=== PATIENT | female | born 1945 | race Caucasian/White ===

== ENCOUNTER 2022-03-01 14:58 | Inpatient (IN) | payer MEDICARE, OTHER ==
[~2022-03-01] VITALS: Ht 167.6 cm; Wt 77.6 kg
--- NOTE | 2022-03-01 15:36 | NUR ---
PT BIB FACILITY STAFF C/O GENERALIZED WEAKNESS, WORST TO BLE CAUSING HER TO FALL FREQUENTLY. PT PT IS AAOX3, VSS. NAD NOTED AWAITING MD LEMONS.
[2022-03-01] MEDS ORDERED: BACL10TA PO (16:08)
[2022-03-01] MEDS ORDERED: BUPR-319 PO (16:08)
[2022-03-01] MEDS ORDERED: CHOL200013 PO (16:08)
[2022-03-01] MEDS ORDERED: ONDA4TAB11 PO (16:08)
[2022-03-01] MEDS ORDERED: FOLI0.8T3 PO (16:08)
[2022-03-01] MEDS ORDERED: MULT-439 PO (16:08)
[2022-03-01] MEDS ORDERED: GABA-536 PO (16:08)
[2022-03-01] MEDS ORDERED: MAGN400O6 PO (16:08)
[2022-03-01] MEDS ORDERED: LOPE2CAP PO (16:08)
[2022-03-01] MEDS ORDERED: TOLT4CAP PO (16:08)
[2022-03-01] MEDS ORDERED: MIRT-121 PO (16:08)
--- NOTE | 2022-03-01 16:30 | NUR ---
DR GARVIN AT BEDSIDE FOR EVAL.
--- NOTE | 2022-03-01 16:50 | NUR ---
SUPERINTENDENT SYSTEM OPERATION AT BEDSIDE FOR BLOOD DRAW
[2022-03-01 17:39] LABS: CALCIUM, SERUM 9.1 mg/dL (8.5-10.1); CREATININE 1.2 mg/dL (0.6-1.3)
[2022-03-01 17:43] LABS: BASOPHILS % (AUTO) 0.6 % (0.0-2.0); HEMATOCRIT 43 % (33-45); LYMPHOCYTES % (AUTO) 33.7 % (20.0-44.0); MEAN CORPUSCULAR HGB CONC 33 g/dl (31.0-36.0); MEAN CORPUSCULAR VOLUME 94 fL (82-100); MONOCYTES # (AUTO) 0.7 K/uL (0.1-1.30); MONOCYTES % (AUTO) 10.9 % (2.0-12.0); NEUTROPHILS # (AUTO) 3.1 K/uL (1.8-8.9); NEUTROPHILS % (AUTO) 51.8 % (43.0-81.0); PLATELET COUNT (AUTO) 377 K/uL (150-450); RED BLOOD CELL COUNT(AUTO) 4.51 MIL/uL (4.0-5.2)
[2022-03-01 17:45] LABS: ALBUMIN 3.3 g/dL (3.4-5.0); BILIRUBIN,DIRECT 0.1 mg/dL (0.0-0.2); BILIRUBIN,TOTAL 0.3 mg/dL (0.2-1.0); TOTAL PROTEIN, SERUM 7.5 g/dL (6.4-8.2)
--- NOTE | 2022-03-01 18:26 | NUR ---
COVID SWAB DONE AND SENT TO LAB
[2022-03-01] MEDS ORDERED: MAGNESIUM HYDROXIDE 30 ML UDC PO PRN (20:30)
[2022-03-01] MEDS ORDERED: ONDANSETRON HCL/PF 4 MG/2 ML VIAL IVP PRN (20:30)
[2022-03-01] MEDS ORDERED: Z GUARD REMEDY 4 OZ OINT TP PRN (20:30)
--- NOTE | 2022-03-01 22:02 | NUR ---
REPORT GIVEN TO MONICA BRIGHT
--- NOTE | 2022-03-01 22:44 | NUR ---
PATIENT TRANSFERRED, NO ACUTE DISTRESS NOTED.
--- NOTE | 2022-03-01 22:45 | NUR ---
ADMISSION NOTES PT ARRIVED VIA [facility] @[id number] ACCOMPANIED BY RN AND EMT. AOx4, ABLE TO MAKE NEEDS KNOWN. ON RA AND TOLERATING WELL. NO SOB NOTED. NO S/S OF RESPIRATORY DISTRESS NOTED. IV ACCESS IN LAC #20G. IV IS INTACT, PATENT, AND FLUSHING WELL. SKIN IS INTACT. SAFETY PRECAUTIONS IN PLACE: BED IN LOWEST, LOCKED POSITION, SIDERAILS UPx2, AND BRAKES ON. TABLE AND CALL LIGHT WITHIN REACH. ALL NEED MET AT THIS TIME.
[2022-03-02] MEDS: ACETAMINOPHEN 325 MG TABLET PO PRN ×2 (00:20→21:26)
--- NOTE | 2022-03-02 00:20 | NUR ---
RN NOTES ADMINISTERED TYLENOL FOR PAIN PER MD ORDER.
[2022-03-02] MEDS ORDERED: GUAIFENESIN/D-METHORPHAN HB 5 ML UDC PO PRN (00:30)
[2022-03-02] MEDS: BENZONATATE 100 MG CAPSULE PO SCH ×4 (00:38→17:20)
[2022-03-02 06:26] LABS: BILIRUBIN,URINE NEGATIVE (NEGATIVE); COLOR,URINE YELLOW (YELLOW); LEUKOCYTE ESTERASE ,URINE LARGE (NEGATIVE); NITRITE, URINE NEGATIVE (NEGATIVE); PROTEIN,URINE 100 mg/dl (NEGATIVE); UGLUCOSE NEGATIVE (NEGATIVE); UROBILINOGEN,URINE 0.2 EU/dL (0.2)
[2022-03-02 06:29] LABS: BASOPHILS % (AUTO) 0.6 % (0.0-2.0); EOSINOPHILS % (AUTO) 4.1 % (0.0-6.0); HEMATOCRIT 38 % (33-45); HEMOGLOBIN 12.5 g/dL (11.5-14.8); LYMPHOCYTES # (AUTO) 1.8 K/uL (0.8-4.8); MEAN CORPUSCULAR HGB CONC 33 g/dl (31.0-36.0); MEAN CORPUSCULAR VOLUME 94 fL (82-100); MONOCYTES # (AUTO) 0.8 K/uL (0.1-1.30); MONOCYTES % (AUTO) 13.1 % (2.0-12.0); NEUTROPHILS % (AUTO) 51.2 % (43.0-81.0); PLATELET COUNT (AUTO) 341 K/uL (150-450); RED BLOOD CELL COUNT(AUTO) 4.04 MIL/uL (4.0-5.2); WHITE BLOOD COUNT (AUTO) 5.8 K/uL (4.3-11.0)
[2022-03-02 06:35] LABS: BACTERIA,URINE Few /HPF (None Seen); RBC,URINE 0-2 /HPF (0-2); SQUAMOUS EPITHELIAL CELL,UR Few /HPF (None Seen)
[2022-03-02 06:49] LABS: CALCIUM, SERUM 8.4 mg/dL (8.5-10.1); CREATININE 1.1 mg/dL (0.6-1.3); MAGNESIUM 2.2 mg/dL (1.8-2.4)
[2022-03-02 06:55] LABS: THYROID STIMULATING HORMONE 0.784 uIU/mL (0.358-3.74)
--- NOTE | 2022-03-02 07:10 | NUR ---
MS RN OPENING NOTES: RN OPENING NOTE RECEIVED PATIENT IN BED, ASLEEP. PATIENT IS ABLE TO MAKE NEEDS KNOWN. A/O X 4 AT THIS TIMES. NOT IN ANY DISTRESS ON ROOM AIR. PATIENT HAS A LAC 20 G PATENT AND INTACT, FLUSHING WELL. PATIENT DOES NOT REPORT ANY PAIN AT THIS TIME. SAFETY MEASURES IN PLACE: BED LOCKED AND IN LOWEST POSITION, CALL LIGHT WITHIN REACH, SIDE RAILS UP. WILL MONITOR PATIENT CLOSELY.
[2022-03-02] MEDS: PANTOPRAZOLE 40 MG TABLET.DR PO SCH (07:48)
--- NOTE | 2022-03-02 07:48 | NUR ---
RN CLOSING NOTES PT IN BED, ASLEEP, AWAKENS TO VERBAL STIMULI. NO DISTRESS NOTED. REPORT GIVEN TO DAYSHIFT RN.
[2022-03-02 08:00] VITALS: BP_SYST 119; BP_SYST 128; BP_DIAS 72; BP_DIAS 74
[2022-03-02] MEDS: CHOLECALCIFEROL 1,000 UNIT TABLET (VIT D3) PO SCH (09:11)
[2022-03-02] MEDS: ENOXAPARIN SODIUM 40 MG/0.4 ML DISP.SYRIN SQ SCH (09:11)
[2022-03-02] MEDS: MULTIVIT W/MINERALS 1 TAB TABLET PO SCH (09:12)
[2022-03-02] MEDS: BUPROPION XL 150 MG TAB.ER.24 PO SCH (09:12)
[2022-03-02] MEDS: GABAPENTIN 300 MG CAPSULE PO SCH ×3 (09:12→17:20)
[2022-03-02] MEDS: FOLIC ACID 1 MG TABLET PO SCH (09:12)
[2022-03-02] MEDS: TOLTERODINE 2 MG CAP.SR PO SCH (09:19)
[2022-03-02] MEDS: CEFTRIAXONE 1 G in IV D5W 50 ML IV SCH (11:39)
--- NOTE | 2022-03-02 12:18 | NUR ---
RN NOTES: SEEN AND EVALUATED BY PT
[2022-03-02 16:00] VITALS: BP_SYST 119; BP_SYST 128; BP_DIAS 72; BP_DIAS 74
--- NOTE | 2022-03-02 19:12 | NUR ---
MS RN CLOSING NOTES: PT IN BED AWAKE, ALERT AND ORIENTED X 4 , NOT IN ANY DISTRESS, ON ROOM AIR NO SOB, DENIED ANY PAIN OR DISCOMFORT, JH LOCK OG LEFT AC PATENT AND FLUSHED WELL, BED KEPT IN LOW AND LOCKED POSITION, ENDORSED TO WAREHOUSE MAN RN TO CONTINUE TO MONITOR FOR ANY NANCY
--- NOTE | 2022-03-02 19:21 | NUR ---
MS RN OPENING NOTE RECEIVED PATIENT IN BED, A/OX4. NO S/S OF APPARENT DISTRESS ON ROOM AIR. DENIES PAIN NOR DISCOMFORT AT THIS TIME, WHEELCHAIR NOTED ON BEDSIDE. Dorothy. YAO #20G ON SALINE LOCK. ORIENTED AND ENCOURAGED WITH THE USE OF CALL LIGHT. SAFETY IN PLACE. WILL CONTINUE WITH PATIENT'S PLAN OF CARE.
[2022-03-02 20:00] VITALS: BP 112/67
[2022-03-02] MEDS: MIRTAZAPINE 15 MG TABLET PO SCH (21:25)
[2022-03-02] MEDS: BACLOFEN (10 MG) 10 MG TABLET PO SCH (21:25)
[2022-03-03 06:16] LABS: BASOPHILS % (AUTO) 0.8 % (0.0-2.0); EOSINOPHILS % (AUTO) 4.6 % (0.0-6.0); HEMATOCRIT 38 % (33-45); HEMOGLOBIN 12.8 g/dL (11.5-14.8); LYMPHOCYTES % (AUTO) 41.4 % (20.0-44.0); MEAN CORPUSCULAR HGB CONC 34 g/dl (31.0-36.0); MEAN CORPUSCULAR VOLUME 93 fL (82-100); MONOCYTES # (AUTO) 0.7 K/uL (0.1-1.30); MONOCYTES % (AUTO) 15.1 % (2.0-12.0); NEUTROPHILS # (AUTO) 1.8 K/uL (1.8-8.9); NEUTROPHILS % (AUTO) 38.1 % (43.0-81.0); PLATELET COUNT (AUTO) 341 K/uL (150-450); RED BLOOD CELL COUNT(AUTO) 4.04 MIL/uL (4.0-5.2); WHITE BLOOD COUNT (AUTO) 4.7 K/uL (4.3-11.0)
--- NOTE | 2022-03-03 06:43 | NUR ---
closing note rn noc patient in bed, a/ox4. all needs attended. no s/s of distress in room air. denies any pain nor discomfort. safety kept in place the whole shift. will endorse to morning shift rn for continuiity of patient care.
[2022-03-03 06:48] LABS: ALBUMIN 2.7 g/dL (3.4-5.0); BILIRUBIN,TOTAL 0.3 mg/dL (0.2-1.0); CALCIUM, SERUM 8.4 mg/dL (8.5-10.1); CREATININE 1.2 mg/dL (0.6-1.3); MAGNESIUM 2.3 mg/dL (1.8-2.4); PHOSPHORUS 4.5 mg/dL (2.5-4.9); TOTAL PROTEIN, SERUM 6.3 g/dL (6.4-8.2)
[2022-03-03 08:00] VITALS: BP 115/70
[2022-03-03] MEDS: ENOXAPARIN SODIUM 40 MG/0.4 ML DISP.SYRIN SQ SCH (08:17)
[2022-03-03] MEDS: PANTOPRAZOLE 40 MG TABLET.DR PO SCH (08:19)
[2022-03-03] MEDS: MULTIVIT W/MINERALS 1 TAB TABLET PO SCH (08:19)
[2022-03-03] MEDS: TOLTERODINE 2 MG CAP.SR PO SCH (08:19)
[2022-03-03] MEDS: FOLIC ACID 1 MG TABLET PO SCH (08:19)
[2022-03-03] MEDS: BENZONATATE 100 MG CAPSULE PO SCH ×3 (08:19→17:12)
[2022-03-03] MEDS: GABAPENTIN 300 MG CAPSULE PO SCH ×3 (08:19→17:12)
[2022-03-03] MEDS: BUPROPION XL 150 MG TAB.ER.24 PO SCH (08:19)
[2022-03-03] MEDS: CHOLECALCIFEROL 1,000 UNIT TABLET (VIT D3) PO SCH (08:20)
[2022-03-03] MEDS: CEFTRIAXONE 1 G in IV D5W 50 ML IV SCH (09:09)
[2022-03-03 12:22] LABS: BAND % (MANUAL) 1 % (0.0-5.0); EOSINOPHILS % (MANUAL) 6 % (0-4); LYMPHOCYTES % (MANUAL) 39 % (16-48); MONOCYTES % (MANUAL) 12 % (0-11.0); NEUTROPHILS % (MANUAL) 42 (42-76)
[2022-03-03 15:52] VITALS: BP 123/69
--- NOTE | 2022-03-03 19:41 | NUR ---
RN OPENING NOTE PATIENT RECEIVED AWAKE AND IN BED A/O X4 ND ABLE TO VERBALIZE ALL NEEDS. NO C/O PAIN, NO S/SX OF DISTRESS. PATIENT TOLERATED ALL MEDICATIONS AND MEALS. IV ACCESS SITE PATENT, INTACT AND FLUSHING WELL. TOLERATED IV ABX WITH S/SX OF ADVERSE REACTIONS. SAFETY MEASURES INTACT WITH BED LOW AND LOCKED. CALL LIGHT WITHIN REACH. WILL CONT TO MONITOR.
--- NOTE | 2022-03-03 19:44 | NUR ---
RN OPENING NOTE PATIENT AWAKE IN BED. A/OX4. NO S/S OF DISTRESS, BREATHING WITHOUT DIFFICULTY ROOM AIR. LAC #20 SL INTACT AND PATENT. SAFETY MEASURES IN PLACE: BED AT LOWEST POSITION & LOCKED, RAILS UP X2, CALL FAY WITHIN REACH. WILL CONTINUE TO MONITOR PATIENT.
[2022-03-03 20:00] VITALS: BP 97/56
[2022-03-03] MEDS: ACETAMINOPHEN 325 MG TABLET PO PRN (21:21)
[2022-03-03] MEDS: MIRTAZAPINE 15 MG TABLET PO SCH (21:21)
[2022-03-03] MEDS: BACLOFEN (10 MG) 10 MG TABLET PO SCH (21:21)
--- NOTE | 2022-03-04 06:30 | NUR ---
RN CLOSING NOTE PATIENT ASLEEP IN BED. A/OX4. NO S/S OF DISTRESS, BREATHING WITHOUT DIFFICULTY ON ROOM AIR. LAC #20 SL INTACT AND PATENT. SAFETY MEASURES IN PLACE: BED LOCKED & AT LOWEST POSITION, RAILS UP X2, CALL FAY WITHIN REACH. WILL ENDORSE TO NEXT SHIFT FOR NANCY.
--- NOTE | 2022-03-04 07:30 | NUR ---
RN OPENING NOTE PATIENT RECEIVED IN BED AND SLEEPING. REMAINS A/OX4. NO S/SX OF DISTRESS OBSERVED; NO C/O PAIN UPON ASSESSMENT. IV ACCESS TO LAC INTACT AND PATENT. SAFETY MEASURES INTACT WITH BED LOW AND LOCKED. CALL LIGHT WITHIN REACH. WILL CONTINUE TO MONITOR.
[2022-03-04 08:00] VITALS: BP 105/67
[2022-03-04] MEDS: ENOXAPARIN SODIUM 40 MG/0.4 ML DISP.SYRIN SQ SCH (08:59)
[2022-03-04] MEDS: PANTOPRAZOLE 40 MG TABLET.DR PO SCH (09:01)
[2022-03-04] MEDS: CHOLECALCIFEROL 1,000 UNIT TABLET (VIT D3) PO SCH (09:01)
[2022-03-04] MEDS: FOLIC ACID 1 MG TABLET PO SCH (09:01)
[2022-03-04] MEDS: BUPROPION XL 150 MG TAB.ER.24 PO SCH (09:01)
[2022-03-04] MEDS: GABAPENTIN 300 MG CAPSULE PO SCH ×2 (09:01→13:48)
[2022-03-04] MEDS: TOLTERODINE 2 MG CAP.SR PO SCH (09:01)
[2022-03-04] MEDS: MULTIVIT W/MINERALS 1 TAB TABLET PO SCH (09:01)
[2022-03-04] MEDS: BENZONATATE 100 MG CAPSULE PO SCH ×2 (09:02→13:48)
[2022-03-04] MEDS: CEFTRIAXONE 1 G in IV D5W 50 ML IV SCH (09:27)
[2022-03-04 17:00] VITALS: BP 111/74
--- NOTE | 2022-03-04 17:26 | NUR ---
COLOR LABORATORY TECHNICIAN NOTE PATIENT A/O X4. DISCHARGED FROM FACILITY @ 1730 ON GURNEY. TRANSPORTED TO [facility] VIA AMBULANCE. ALL BELONGINGS AND WHEELCHAIR TAKEN WITH PATIENT. REPORT GIVEN OVER TELEPHONE TO RECEIVING NURSE JOLIE. PATIENT DISCHARGED WITH IV ACCES INTACT, IV ANTIBIOTICS ARE SCHEDULED TO CONTINUE. CHARGE NURSE MADE AWARE.
== END 2022-03-04 17:30 | DRG 690 ==
LOC: ER 15:01 → MED 22:09
DX: N39.0 Urinary tract infection, site not specified (principal); E44.1 Mild protein-calorie malnutrition; J98.11 Atelectasis; R62.7 Adult failure to thrive; G40.909 Epilepsy, unspecified, not intractable, without status epilepticus; Z86.16 Personal history of COVID-19; E88.09 Other disorders of plasma-protein metabolism, not elsewhere classified; Z20.822 Contact with and (suspected) exposure to COVID-19; I70.0 Atherosclerosis of aorta; Z87.891 Personal history of nicotine dependence
CPT/HCPCS: 36415; 71045-TC; 80048-TC; 80053-TC; 80076-TC; 81001; 83735-TC; 84100-TC; 84443-TC; 85025-TC; 87081-TC; 87086-TC; 97112-TC; 97530-TC; C9803; G0378; J0696; J1650; J7050; J7060